=== PATIENT | male | born 1995 | race Caucasian/White ===

== ENCOUNTER 2018-01-22 12:42 | Emergency (ER) | payer OTHER ==
[2018-01-22 12:51] VITALS: O2SAT 99
--- NOTE | 2018-01-22 12:58 | ERPHSYRPT ---
- History of Present Illness Time Seen by Provider: 01/22/18 12:52 Source: patient Exam Limitations: no limitations Patient Subjective Stated Complaint: Rash to face, blieves poison marta. Triage Nursing Assessment: Pt presents to the ED with complaints of rash to face x3 days. Pt states he has used benadryl for itching, and bleach to rash. Pt denies other complaints, no distress noted, skin PWD. Physician History: The patient is a 22-year-old male complaining of increasing swelling and rash to his face for 3 days. The rash is itchy. He is unsure what might be causing it but he thinks he could be poison marta. He helped move a shed a few days ago. He has been putting bleach on the rash. His past medical history is unremarkable. He denies shortness of breath. Timing/Duration: day(s) (3), gradual onset, worse Quality: burning, itchy Severity: moderate Location: face Possible Causes: poison marta Modifying Factors: Improves With: other (bleaclh) Associated Symptoms: blisters, rash Allergies/Adverse Reactions: No Known Drug Allergies Allergy (Verified 01/22/18 12:53) Hx Tetanus, Diphtheria Vaccination/Date Given: No Hx Influenza Vaccination/Date Given: No Hx Pneumococcal Vaccination/Date Given: No Immunizations Up to Date: Yes - Review of Systems Constitutional: No Fever, No Chills Eyes: No Symptoms Ears, Nose, & Throat: No Symptoms Respiratory: No Cough, No Dyspnea Cardiac: No Chest Pain, No Edema, No Syncope Abdominal/Gastrointestinal: No Abdominal Pain, No Nausea, No Vomiting, No Diarrhea Genitourinary Symptoms: No Dysuria Musculoskeletal: No Back Pain, No Neck Pain Skin: Pruritis, Rash Neurological: No Dizziness, No Focal Weakness, No Sensory Changes Psychological: No Symptoms Endocrine: No Symptoms Hematologic/Lymphatic: No Symptoms Immunological/Allergic: No Symptoms All Other Systems: Reviewed and Negative - Past Medical History Pertinent Past Medical History: No Other Medical History: kidney stones and cely in his head for a laceration - Past Surgical History Past Surgical History: No - Social History Smoking Status: Current every day smoker How long have you smoked: 5 years Exposure to second hand smoke: Yes Drug Use: none Patient Lives Alone: No - Nursing Vital Signs Nursing Vital Signs: Initial Vital Signs Temperature 97.6 F 01/22/18 12:47 Pulse Rate 83 01/22/18 12:47 Respiratory Rate 16 01/22/18 12:47 Blood Pressure 137/82 01/22/18 12:47 O2 Sat by Pulse Oximetry 99 01/22/18 12:47 Pain Scale Pain Intensity 0 - Physical Exam General Appearance: no apparent distress, alert Eye Exam: PERRL/EOMI, eyes nml inspection Ears, Nose, Throat Exam: normal ENT inspection, pharynx normal, moist mucous membranes Neck Exam: normal inspection, non-tender, supple, full range of motion Respiratory Exam: normal breath sounds, lungs clear, No respiratory distress Cardiovascular Exam: regular rate/rhythm, normal heart sounds Gastrointestinal/Abdomen Exam: soft, mass, No tenderness Rectal Exam: not done Back Exam: normal inspection, normal range of motion, No CVA tenderness, No vertebral tenderness Extremity Exam: normal inspection, normal range of motion Neurologic Exam: alert, oriented x 3, cooperative, normal mood/affect, sensation nml, No motor deficits Skin Exam: rash (Examination of the face reveals swelling of the upper left eyelid and surrounding periorbital region. There is swelling to the upper lip. There is a mild red rash around the upper lip, nose, and left eye. There is very mild rash around the right eye.) SpO2 Interpretation: normal SpO2: 99 Oxygen Delivery: Room Air - Departure Time of Disposition: 12:56 Departure Disposition: Home Clinical Impression: Contact dermatitis Condition: Stable Critical Care Time: No Referrals: PAPITO MONTGOMERY [Primary Care Provider] - Additional Instructions: You have contact dermatitis that is likely caused by poison marta exposure. Take Benadryl as needed. Take prednisone 60 mg daily for 5 days. If the condition does not improve within 3 or 4 days, contact your local physician. Prescriptions: Prednisone 20 mg [Deltasone 20 mg] 3 tab PO DAILY #15 tablet
[2018-01-22 13:05] VITALS: BP 134/80; PULSE 80
== END 2018-01-22 13:08 | disposition home or self-care (01) ==
LOC: ED 12:42
DX: L25.9 Unspecified contact dermatitis, unspecified cause (principal)
CPT/HCPCS: 99283

== ENCOUNTER 2019-10-18 23:26 | Emergency (ER) | payer MEDICAID, OTHER ==
[2019-10-18 23:43] VITALS: O2SAT 99
[2019-10-19 00:33] LABS: Absolute Neutrophil Ct (ANC) 9.81 (1.4-6.9); BASOPHIL % 0.2 % (0.0-0.4); Basophil (Absolute #) 0.03 (0-0.4); Eosinophil % 1.2 % (0.00-5.0); Eosinophil (Absolute #) 0.17 (0-0.5); Hematocrit 40.8 % (42-50); Hemoglobin 14.9 gm/dl (12.5-18.0); Lymphocyte (Absolute #) 2.65 (1.0-4.6); Lymphocytes % 19.4 % (24.0-44.0); Mean Cell Volume 85.4 fl (78-100); Mean Corpuscular Hemoglobin 31.2 pg (26-32); Mean Corpuscular Hgb Concent. 36.5 g/dl (32-36); Mean Platelet Volume 10.5 fl (7.5-11.0); Monocytes % 7.3 % (0.0-12.0); Neutrophil % 71.9 % (36.0-66.0); Platelet Count 276 K/mm3 (150-450); Red Blood Count 4.78 M/mm3 (4.1-5.6); Red Cell Distribution Width 12.8 % (11.5-14.0); White Blood Count 13.7 K/mm3 (4.0-10.5)
[2019-10-19 00:42] LABS: Appearance CLEAR (CLEAR); Bilirubin NEGATIVE (NEGATIVE); Blood NEGATIVE Ery/ul (0-5); Glucose NEGATIVE (NEGATIVE); Ketones NEGATIVE (NEGATIVE); Leukocyte Esterase NEGATIVE (NEGATIVE); Nitrite NEGATIVE (NEGATIVE); Protein,Urine Dip NEGATIVE (Negative); Urobilinogen NEGATIVE mg/dL (0-1)
[2019-10-19 00:46] LABS: D-DIMER QUANTITATIVE < 100 ng/mL (215-500); INR 1.11 (0.8-3.0); PROTIME 12.6 SECONDS (8.83-12.87)
[2019-10-19 00:48] LABS: ALBUMIN 4.5 g/dL (3.5-5.0); ALKALINE PHOSPHATASE 61 U/L (38-126); AMYLASE 73 U/L (30-110); ANION GAP 10.7 MEQ/L (5-15); BLOOD UREA NITROGEN 15 mg/dL (9-20); CHLORIDE 103 mmol/L (98-107); Calcium 9.2 mg/dL (8.4-10.2); Carbon Dioxide 29 mmol/L (22-30); Creatinine 1 0.84 mg/dL (0.66-1.25); Glucose 63 mg/dL (74-106); LIPASE 55 U/L (23-300); MAGNESIUM 1.8 mg/dL (1.6-2.3); NT PRO BNP 53.1 pg/mL (0-450); Potassium 3.4 mmol/L (3.5-5.1); SGOT/AST 21 U/L (17-59); SGPT/ALT 12 U/L (0-50); SODIUM 140 mmol/L (137-145); Total Protein 7.4 g/dL (6.3-8.2)
[2019-10-19 00:52] LABS: Erythrocyte Sedimentation Rate 2 mm/hr (0-15)
[2019-10-19] MEDS ORDERED: ROCEPHIN 1 Gm-D5w 50 ml Bag** 1 G/50 ML IVPB IV STA (01:35)
--- NOTE | 2019-10-19 01:35 | ERPHSYRPT ---
- History of Present Illness Time Seen by Provider: 10/18/19 23:40 Patient Subjective Stated Complaint: pt was helping his dad unload firewood, and started having chest pain Triage Nursing Assessment: pt c/o chest pain while helping his father unload gary. Pt had no pain radiation, no nausea or vomiting. Pt c/o lightheadedness. Pt took 2 sl ntg tabs that his grandmother had around 2300 which helped. Physician History: patient is a 25-year-old male who was unloading wood when he developed lightheadedness and dizziness he also had some substernal discomfort that did not radiate he felt short of breath he had no nausea no vomiting and no diaphoresis. Risk factors include smoking family history and unknown cholesterol status. Timing/Duration: today Activities at Onset: activity (unloading wood) Location: substernal Chest Pain Radiation: no radiation Severity of Pain-Max: moderate Severity of Pain-Current: moderate Modifying Factors: Improves With: breathing (pleuritic in nature) Associated Symptoms: cough, hurts to breathe, dizziness Prior Chest Pain/Cardiac Workup: no prior chest pain Nitro Today/Relief: no nitro taken today Aspirin Treatment Today: no aspirin today Allergies/Adverse Reactions: No Known Drug Allergies Allergy (Verified 10/18/19 23:40) Hx Tetanus, Diphtheria Vaccination/Date Given: Yes Hx Influenza Vaccination/Date Given: No Hx Pneumococcal Vaccination/Date Given: No Immunizations Up to Date: Yes - Review of Systems Constitutional: No Fever, No Chills Eyes: No Symptoms Ears, Nose, & Throat: No Symptoms Respiratory: Cough, No Dyspnea Cardiac: Chest Pain, No Edema, No Syncope Abdominal/Gastrointestinal: No Abdominal Pain, No Nausea, No Vomiting, No Diarrhea Genitourinary Symptoms: No Dysuria Musculoskeletal: No Back Pain, No Neck Pain Skin: No Rash Neurological: Dizziness, No Focal Weakness, No Sensory Changes Psychological: No Symptoms Endocrine: No Symptoms All Other Systems: Reviewed and Negative - Past Medical History Pertinent Past Medical History: Yes Neurological History: No Pertinent History ENT History: No Pertinent History Cardiac History: No Pertinent History Respiratory History: No Pertinent History Endocrine Medical History: No Pertinent History Musculoskeletal History: No Pertinent History GI Medical History: No Pertinent History History: Other Psycho-Social History: Depression Male Reproductive Disorders: No Pertinent History Other Medical History: kidney stones and cely in his head for a laceration - Past Surgical History Past Surgical History: No - Social History Smoking Status: Current every day smoker How long have you smoked: 14 yrs Exposure to second hand smoke: Yes Drug Use: marijuana Patient Lives Alone: No - Nursing Vital Signs Nursing Vital Signs: Initial Vital Signs Temperature 97.4 F 10/18/19 23:27 Pulse Rate 92 H 10/18/19 23:27 Respiratory Rate 15 10/18/19 23:27 Blood Pressure 146/79 10/18/19 23:27 O2 Sat by Pulse Oximetry 100 10/18/19 23:27 Pain Scale Pain Intensity 1 - Physical Exam General Appearance: no apparent distress, alert Eye Exam: PERRL/EOMI, eyes nml inspection Ears, Nose, Throat Exam: normal ENT inspection, moist mucous membranes Neck Exam: normal inspection, non-tender, supple, full range of motion Respiratory Exam: normal breath sounds, crackles/rales (right midlung field), No respiratory distress Cardiovascular Exam: regular rate/rhythm, normal heart sounds Gastrointestinal/Abdomen Exam: soft, No tenderness, No mass Back Exam: normal inspection, No CVA tenderness, No vertebral tenderness Extremity Exam: normal inspection, normal range of motion Neurologic Exam: alert, oriented x 3, cooperative, normal mood/affect, sensation nml, No motor deficits Skin Exam: normal color, warm, dry SpO2: 99 - Course Nursing assessment & vital signs reviewed: Yes EKG Interpreted by Me: RATE (81), Sinus Rhythm, NORMAL AXIS, NORMAL INTERVALS, NORMAL QRS - Radiology Exams Chest X-ray Interpretation: Interpreted by me, Infiltrates (questionable early infiltrate in the right midlung field), Pneumonia Ordered Tests: Active Orders 24 hr Category Date Time Status Tugboat Dispatcher STAT Care 10/18/19 23:41 Active EKG-ER Only STAT Care 10/18/19 23:41 Active IV Insertion STAT Care 10/18/19 23:41 Active Pulse Oximetry (ED) STAT Care 10/18/19 23:41 Active CHEST 1 VIEW (PORTABLE) Stat Exams 10/19/19 00:27 Ordered AMYLASE Stat Lab 10/19/19 00:05 Completed CBC W DIFF Stat Lab 10/19/19 00:26 Completed CMP Stat Lab 10/19/19 00:05 Completed D-DIMER QUANTITATIVE Stat Lab 10/19/19 00:26 Completed Erythrocyte Sedimentation Rate Stat Lab 10/19/19 00:26 Completed LIPASE Stat Lab 10/19/19 00:05 Completed MAGNESIUM Stat Lab 10/19/19 00:05 Completed NT PRO BNP Stat Lab 10/19/19 00:05 Completed PROTIME WITH INR Stat Lab 10/19/19 00:26 Completed TROPONIN Q3H Lab 10/19/19 00:05 Completed TROPONIN Q3H Lab 10/19/19 03:30 Ordered TROPONIN Q3H Lab 10/19/19 06:30 Ordered TROPONIN Q3H Lab 10/19/19 09:30 Ordered TROPONIN Q3H Lab 10/19/19 12:30 Ordered UA W/RFX UR CULTURE Stat Lab 10/19/19 00:38 Completed Lab/Rad Data: Laboratory Result Diagrams 10/19/19 00:26 10/19/19 00:05 Laboratory Results 10/19/19 10/19/19 10/19/19 Range/Units 00:38 00:26 00:26 WBC 13.7 H (4.0-10.5) K/mm3 RBC 4.78 (4.1-5.6) M/mm3 Hgb 14.9 (12.5-18.0) gm/dl Hct 40.8 L (42-50) % MCV 85.4 (78-100) fl MCH 31.2 (26-32) pg MCHC 36.5 H (32-36) g/dl RDW 12.8 (11.5-14.0) % Plt Count 276 (150-450) K/mm3 MPV 10.5 (7.5-11.0) fl Gran % 71.9 H (36.0-66.0) % Eos # (Auto) 0.17 (0-0.5) Absolute Lymphs (auto) 2.65 (1.0-4.6) Absolute Monos (auto) 1.00 (0.0-1.3) Lymphocytes % 19.4 L (24.0-44.0) % Monocytes % 7.3 (0.0-12.0) % Eosinophils % 1.2 (0.00-5.0) % Basophils % 0.2 (0.0-0.4) % Absolute Granulocytes 9.81 H (1.4-6.9) Basophils # 0.03 (0-0.4) ESR 2 (0-15) mm/hr PT 12.6 (8.83-12.87) SECONDS INR 1.11 (0.8-3.0) D-Dimer < 100 L (215-500) ng/mL Sodium (137-145) mmol/L Potassium (3.5-5.1) mmol/L Chloride (98-107) mmol/L Carbon Dioxide (22-30) mmol/L Anion Gap (5-15) MEQ/L BUN (9-20) mg/dL Creatinine (0.66-1.25) mg/dL Estimated GFR ML/MIN Glucose (74-106) mg/dL Calcium (8.4-10.2) mg/dL Magnesium (1.6-2.3) mg/dL Total Bilirubin (0.2-1.3) mg/dL AST (17-59) U/L ALT (0-50) U/L Alkaline Phosphatase (38-126) U/L Troponin I (0.000-0.034) ng/mL NT-Pro-B Natriuret Pep (0-450) pg/mL Serum Total Protein (6.3-8.2) g/dL Albumin (3.5-5.0) g/dL Amylase (30-110) U/L Lipase (23-300) U/L Urine Color YELLOW (YELLOW) Urine Appearance CLEAR (CLEAR) Urine pH 7.0 (5-6) Ur Specific [place] 1.010 (1.005-1.025) Urine Protein NEGATIVE (Negative) Urine Ketones NEGATIVE (NEGATIVE) Urine Blood NEGATIVE (0-5) William/ul Urine Nitrite NEGATIVE (NEGATIVE) Urine Bilirubin NEGATIVE (NEGATIVE) Urine Urobilinogen NEGATIVE (0-1) mg/dL Ur Leukocyte Esterase NEGATIVE (NEGATIVE) Urine WBC (Auto) NONE (0-5) /HPF Urine RBC (Auto) NONE (0-2) /HPF U Epithel Cells (Auto) NONE (FEW) /HPF Urine Bacteria (Auto) NONE (NEGATIVE) /HPF Urine Culture Reflexed NO (NO) Urine Glucose NEGATIVE (NEGATIVE) mg/dL 10/19/19 10/19/19 Range/Units 00:05 00:05 WBC (4.0-10.5) K/mm3 RBC (4.1-5.6) M/mm3 Hgb (12.5-18.0) gm/dl Hct (42-50) % MCV (78-100) fl MCH (26-32) pg MCHC (32-36) g/dl RDW (11.5-14.0) % Plt Count (150-450) K/mm3 MPV (7.5-11.0) fl Gran % (36.0-66.0) % Eos # (Auto) (0-0.5) Absolute Lymphs (auto) (1.0-4.6) Absolute Monos (auto) (0.0-1.3) Lymphocytes % (24.0-44.0) % Monocytes % (0.0-12.0) % Eosinophils % (0.00-5.0) % Basophils % (0.0-0.4) % Absolute Granulocytes (1.4-6.9) Basophils # (0-0.4) ESR (0-15) mm/hr PT (8.83-12.87) SECONDS INR (0.8-3.0) D-Dimer (215-500) ng/mL Sodium 140 (137-145) mmol/L Potassium 3.4 L (3.5-5.1) mmol/L Chloride 103 (98-107) mmol/L Carbon Dioxide 29 (22-30) mmol/L Anion Gap 10.7 (5-15) MEQ/L BUN 15 (9-20) mg/dL Creatinine 0.84 (0.66-1.25) mg/dL Estimated GFR > 60.0 ML/MIN Glucose 63 L (74-106) mg/dL Calcium 9.2 (8.4-10.2) mg/dL Magnesium 1.8 (1.6-2.3) mg/dL Total Bilirubin 0.40 (0.2-1.3) mg/dL AST 21 (17-59) U/L ALT 12 (0-50) U/L Alkaline Phosphatase 61 (38-126) U/L Troponin I < 0.012 (0.000-0.034) ng/mL NT-Pro-B Natriuret Pep 53.1 (0-450) pg/mL Serum Total Protein 7.4 (6.3-8.2) g/dL Albumin 4.5 (3.5-5.0) g/dL Amylase 73 (30-110) U/L Lipase 55 (23-300) U/L Urine Color (YELLOW) Urine Appearance (CLEAR) Urine pH (5-6) Ur Specific [place] (1.005-1.025) Urine Protein (Negative) Urine Ketones (NEGATIVE) Urine Blood (0-5) William/ul Urine Nitrite (NEGATIVE) Urine Bilirubin (NEGATIVE) Urine Urobilinogen (0-1) mg/dL Ur Leukocyte Esterase (NEGATIVE) Urine WBC (Auto) (0-5) /HPF Urine RBC (Auto) (0-2) /HPF U Epithel Cells (Auto) (FEW) /HPF Urine Bacteria (Auto) (NEGATIVE) /HPF Urine Culture Reflexed (NO) Urine Glucose (NEGATIVE) mg/dL - Progress Progress: improved Air Movement: good Blood Culture(s) Obtained: No Antibiotics given: Yes - Departure Departure Disposition: Home Clinical Impression: Pneumonia Condition: Stable Critical Care Time: No Referrals: DOCTOR,NO FAMILY [Primary Care Provider] - Instructions: Pneumonia, Adult (DC) Prescriptions: Cephalexin Mh 500 mg [Keflex 500 mg] 500 mg PO QID 10 Days #40 capsule
[2019-10-19] MEDS ORDERED: ROCEPHIN 1 Gm-D5w 50 ml Bag** 1 G/50 ML IVPB IV ONE (01:37)
[2019-10-19 02:18] VITALS: BP 123/82; PULSE 84
--- NOTE | 2019-10-19 09:00 | XRAY ---
Indication: Chest pain. Comparison: None Portable chest demonstrates normal heart, lungs, and bony thorax.
== END 2019-10-19 02:20 | disposition home or self-care (01) ==
LOC: ED 23:26
DX: J18.9 Pneumonia, unspecified organism (principal); R07.89 Other chest pain; R42 Dizziness and giddiness; R05 Cough
CPT/HCPCS: 36000; 36415; 71045; 80053; 81001; 82150; 83690; 83735; 83880; 84484; 85025; 85379; 85610; 85652; 93005; 93041; 94760; 99284; J0696

== ENCOUNTER 2022-02-16 00:46 | Emergency (ER) | payer MEDICAID ==
--- NOTE | 2022-02-16 00:49 | ERPHSYRPT ---
- History of Present Illness Time Seen by Provider: 02/16/22 00:49 Source: patient Exam Limitations: no limitations Physician History: This is a right-handed 26-year-old white male who was working with appliance at home and got his left index finger caught in an area where it caused a laceration. Patient does not recall his last tetanus vaccination. Patient got the bleeding to stop. He came here today to get a tetanus shot and to close the laceration site with his preference of glue. Quality: painful Severity: mild Location: hands (Left index finger dorsal aspect) Possible Causes: other (Working on appliance at home) Associated Symptoms: denies symptoms Allergies/Adverse Reactions: No Known Drug Allergies Allergy (Verified 02/16/22 00:54) Home Medications: No Reportable Medications [No Reported Medications] 02/16/22 [History] Hx Tetanus, Diphtheria Vaccination/Date Given: Yes Hx Influenza Vaccination/Date Given: No Hx Pneumococcal Vaccination/Date Given: No Travel Risk - International Travel Have you traveled outside of the country in past 3 weeks: No - Coronavirus Screening Are you exhibiting any of the following symptoms?: No Close contact with a COVID-19 positive Pt in past 14-21 Days: No - Review of Systems Constitutional: No Symptoms Eyes: No Symptoms Ears, Nose, & Throat: No Symptoms Respiratory: No Symptoms Cardiac: No Symptoms Abdominal/Gastrointestinal: No Symptoms Genitourinary Symptoms: No Symptoms Musculoskeletal: No Symptoms Skin: Other (Laceration left index finger) Neurological: No Symptoms Psychological: No Symptoms Endocrine: No Symptoms Hematologic/Lymphatic: No Symptoms Immunological/Allergic: No Symptoms All Other Systems: Reviewed and Negative - Past Medical History Pertinent Past Medical History: Yes Neurological History: No Pertinent History ENT History: No Pertinent History Cardiac History: No Pertinent History Respiratory History: No Pertinent History Endocrine Medical History: No Pertinent History Musculoskeletal History: No Pertinent History GI Medical History: No Pertinent History History: Other Psycho-Social History: Depression Male Reproductive Disorders: No Pertinent History Other Medical History: kidney stones and cely in his head for a laceration - Past Surgical History Past Surgical History: No - Social History Smoking Status: Current every day smoker How long have you smoked: 14 yrs Exposure to second hand smoke: Yes Drug Use: marijuana Patient Lives Alone: No - Physical Exam General Appearance: no apparent distress, alert, anxiety Eye Exam: PERRL/EOMI, eyes nml inspection Ears, Nose, Throat Exam: normal ENT inspection, moist mucous membranes Neck Exam: normal inspection, non-tender, supple, full range of motion Respiratory Exam: airway intact, No chest tenderness, No respiratory distress Gastrointestinal/Abdomen Exam: No tenderness, No guarding Rectal Exam: not done Back Exam: normal inspection, normal range of motion, No CVA tenderness, No vertebral tenderness Extremity Exam: normal inspection, normal range of motion, pelvis stable Neurologic Exam: alert, oriented x 3, cooperative, supervisor wrapping room II-XII nml as tested, normal mood/affect, nml cerebellar function, nml station & gait, sensation nml Skin Exam: laceration (1 cm laceration dorsal aspect proximal left index finger. No active bleeding. No foreign body appreciated) Lymphatic Exam: No adenopathy SpO2 Interpretation: normal O2 Delivery: Room Air Procedures - Laceration/Wound Repair Left Proximal Dorsal Finger Time of Procedure: 01:05 Wound Location: Left, hand (Dorsal aspect left index finger) Wound Length (cm): 1 Wound's Depth, Shape: superficial, linear Wound Explored: clean (Evaluation to the base in a bloodless field. No foreign body appreciated) Irrigated: Yes Hibiclens Prep: Yes Wound Repaired With: Steri-strips, Dermabond - Course Nursing assessment & vital signs reviewed: Yes - Progress Progress: improved, re-examined Counseled pt/family regarding: diagnosis, need for follow-up - Departure Departure Disposition: Home Clinical Impression: Laceration of finger of left hand Condition: Stable Critical Care Time: No Referrals: DOCTOR,NO FAMILY [Primary Care Provider] - Follow up/PCP as directed Additional Instructions: Keep Steri-Strips in place. Do not get the site wet until 02/18/2020 2 in the morning. May then wash daily. Blot dry use a hairdryer. Do not remove the Steri-Strips. They will fall off on their own in 5 to 7 days. Use Tylenol and ibuprofen for pain control.
[2022-02-16] MEDS ORDERED: Adacel Vial IM ONE ×2 (01:16→01:19)
[2022-02-16 01:50] VITALS: BP 138/96; PULSE 101; O2SAT 95
== END 2022-02-16 01:50 | disposition home or self-care (01) ==
LOC: ED 00:46
DX: S61.211A Laceration without foreign body of left index finger without damage to nail, initial encounter (principal); W45.8XXA Other foreign body or object entering through skin, initial encounter; Y93.E9 Activity, other interior property and clothing maintenance; Z72.0 Tobacco use
CPT/HCPCS: 12001; 90471; 90715; 99283